=== PATIENT | male | born 1955 | race Caucasian/White ===

== ENCOUNTER 2022-10-18 21:14 | Emergency (ER) | payer MEDICARE ==
[~2022-10-18] VITALS: Ht 182.9 cm; Wt 90.7 kg
[2022-10-18] MEDS ORDERED: IV NORMAL SALINE 1000 ML BAG IV ONE (21:30)
[2022-10-18] MEDS ORDERED: KETAMINE HCL 500 MG/10 ML INJ IV ONE (21:45)
[2022-10-18] MEDS ORDERED: ONDANSETRON 4 MG/2 ML VIAL IV ONE (21:45)
[2022-10-18] MEDS ORDERED: ONDANSETRON 4 MG/2 ML VIAL ONE (22:08)
[2022-10-18] MEDS ORDERED: KETAMINE HCL 500 MG/10 ML INJ ONE (22:09)
[2022-10-18] MEDS ORDERED: IPRATROPIUM BROMIDE 0.5 MG/2.5 ML NEBU NEB ONE (22:45)
[2022-10-18] MEDS ORDERED: ALBUTEROL SULFATE 2.5 MG/3 ML NEBU NEB ONE (22:45)
[2022-10-18] MEDS ORDERED: methylPREDNISolone SOD SUCC 125 MG/2 ML VIAL IV ONE (22:45)
[2022-10-18 23:01] LABS: SITE, VBG RIGHT RADIAL; VENT MODE, VBG ROOM AIR
[2022-10-18] MEDS ORDERED: IPRATROPIUM BROMIDE 0.5 MG/2.5 ML NEBU ONE (23:06)
[2022-10-18] MEDS ORDERED: ALBUTEROL SULFATE 2.5 MG/3 ML NEBU ONE (23:06)
[2022-10-19 01:16] LABS: HEMATOCRIT 43.5 % (36.7-47.1); MEAN CORPUSCULAR VOLUME 105.9 fL (73.0-96.2); PLATELET COUNT (AUTO) 217 K/uL (152-348)
[2022-10-19 01:24] LABS: CARBON DIOXIDE 24 mmol/L (21-32); CHLORIDE 96 mmol/L (98-107); GLUCOSE 105 mg/dL (74-106); POTASSIUM 3.5 mmol/L (3.5-5.1); UREA NITROGEN, BLOOD 36 mg/dL (7-18)
[2022-10-19 01:33] LABS: ALANINE AMINOTRANSFERASE 50 U/L (16-63); ALKALINE PHOSPHATASE 197 U/L (50-136); ASPARTATE AMINOTRANSFERASE 99 U/L (15-37); BILIRUBIN,DIRECT 1.2 mg/dL (0.0-0.2); BILIRUBIN,TOTAL 1.6 mg/dL (0.2-1.0); CREATINE KINASE, TOTAL 663 U/L (39-308); TOTAL PROTEIN, SERUM 8.5 g/dL (6.4-8.2)
[2022-10-19 01:35] LABS: ACETAMINOPHEN < 10.0 ug/mL (10-30)
[2022-10-19 02:02] LABS: ETHANOL 318 MG/DL (0-0)
[2022-10-19] MEDS ORDERED: methylPREDNISolone SOD SUCC 125 MG/2 ML VIAL ONE ×2 (02:10→06:47)
[2022-10-19] MEDS ORDERED: IV NS 1000 ML 1,000 ML IV ONE ×3 (02:15→15:45)
[2022-10-19] MEDS ORDERED: KETAMINE HCL 500 MG/10 ML INJ IVP ONE (02:30)
[2022-10-19] MEDS ORDERED: KETAMINE HCL 500 MG/10 ML INJ ONE (02:33)
[2022-10-19 02:34] LABS: BAND % (MANUAL) 1 % (0-10); LYMPHOCYTES % (MANUAL) 13 % (20-40); MONOCYTES % (MANUAL) 10 % (2-10); NEUTROPHILS % (MANUAL) 76 % (42-75)
[2022-10-19] MEDS ORDERED: LORAZEPAM 2 MG/1 ML VIAL ONE (02:43)
[2022-10-19] MEDS ORDERED: LORAZEPAM 2 MG/1 ML VIAL IM ONE (02:45)
--- NOTE | 2022-10-19 02:45 | NUR ---
Removed Ketamine 500mg and wasted 465mg on Omnicell to administer 35mg per ERMD order but patient removed hep lock due to being agitated. Instead gave ativan 2mg IM per ERMD and d/c the 35mg ketamine. Wasted 35mg of Ketamine on Omnicell with another RN.
[2022-10-19] MEDS ORDERED: FOLIC ACID 5 MG/ML VIAL IV ONE ×2 (03:30→06:47)
[2022-10-19] MEDS ORDERED: THIAMINE HCL 200 MG/2 ML VIAL IV ONE (03:30)
[2022-10-19] MEDS ORDERED: MAGNESIUM SULFATE/D5W 100 ML IV SCH (03:30)
[2022-10-19] MEDS ORDERED: ACETAMINOPHEN 325 MG TABLET PO PRN (06:30)
[2022-10-19] MEDS ORDERED: IV NS 1000 ML 1,000 ML IV PRN ×2 (06:30→15:44)
[2022-10-19] MEDS ORDERED: HYDROCODONE/APAP 5-325MG TABLET PO PRN (06:30)
[2022-10-19] MEDS ORDERED: ONDANSETRON 4 MG/2 ML VIAL IV PRN (06:30)
[2022-10-19] MEDS ORDERED: REMEDY ESSENTIAL ZINC PASTE 113 GM TP PRN (06:30)
[2022-10-19] MEDS ORDERED: MORPHINE SULFATE 2 MG/1 ML DISP.SYRIN IV PRN (06:30)
[2022-10-19] MEDS ORDERED: MAGNESIUM HYDROXIDE 30 ML LIQUID UDC PO PRN (06:30)
[2022-10-19] MEDS ORDERED: LORAZEPAM 2 MG/1 ML VIAL IV PRN (06:30)
[2022-10-19] MEDS ORDERED: MAGNESIUM SULFATE/D5W 100 ML ONE (06:44)
[2022-10-19] MEDS ORDERED: THIAMINE HCL 200 MG/2 ML VIAL ONE (06:48)
[2022-10-19] MEDS ORDERED: PANTOPRAZOLE SODIUM 40 MG VIAL ONE (08:04)
[2022-10-19] MEDS ORDERED: PANTOPRAZOLE SODIUM 40 MG VIAL IV SCH (09:00)
[2022-10-19 12:00] LABS: *BILIRUBIN,URIN 1+ (NEGATIVE); *BLOOD, URINE 3+ (NEGATIVE); *CLARITY,URINE CLEAR (CLEAR); *COLOR,URINE DARK YELLOW (YELLOW); *KETONES,URINE NEGATIVE (NEGATIVE); LEUKOCYTE ESTERASE ,URINE NEGATIVE (NEGATIVE); NITRITE, URINE NEGATIVE (NEGATIVE); PH,URINE 5.5 (5.0-8.0); UGLUCOSE NEGATIVE (NEGATIVE)
[2022-10-19 12:22] LABS: *AMPHETAMINE, URINE NEGATIVE (NEGATIVE); *CANNABINOID, URINE NEGATIVE (NEGATIVE); *COCCAINE, URINE POSITIVE (NEGATIVE); *OPIATE, URINE NEGATIVE (NEGATIVE); *PHENCYCLIDINE SCREEN,URINE NEGATIVE (NEGATIVE)
[2022-10-19] MEDS ORDERED: ACETAMINOPHEN 325 MG TABLET ONE (14:02)
--- NOTE | 2022-10-19 15:59 | NUR ---
Removed IV intact, site okay, bandaged. Pt signed out AMA, acknowledges risks up to and including . Audrey Welch aware. Wheeled pt to front, pt's friend Bo came to pick him up.
[2022-10-19 20:02] LABS: BACTERIA,URINE FEW /HPF (NONE SEEN); SQUAMOUS EPITHELIAL CELL,UR FEW /HPF (NONE SEEN); WBC,URINE NONE SEEN /HPF (0-3)
[2022-10-20] MEDS ORDERED: THIAMINE HCL INJ 100 MG in IV DEXTROSE 5% 50 ML IV SCH (06:00)
[2022-10-20] MEDS ORDERED: FOLIC ACID 1 MG in IV DEXTROSE 5% 50 ML IV SCH (06:30)
== END 2022-10-19 16:05 | disposition left against medical advice (07) ==
LOC: ER 21:14
DX: S22.41XA Multiple fractures of ribs, right side, initial encounter for closed fracture (principal); W19.XXXA Unspecified fall, initial encounter; Y92.89 Other specified places as the place of occurrence of the external cause; G93.41 Metabolic encephalopathy; F10.129 Alcohol abuse with intoxication, unspecified; Y90.8 Blood alcohol level of 240 mg/100 ml or more; N17.9 Acute kidney failure, unspecified; E86.0 Dehydration; E87.20 Acidosis, unspecified; M62.82 Rhabdomyolysis; Z20.822 Contact with and (suspected) exposure to COVID-19; R74.01 Elevation of levels of liver transaminase levels; Z91.199 Patient's noncompliance with other medical treatment and regimen due to unspecified reason; Z53.29 Procedure and treatment not carried out because of patient's decision for other reasons; I10 Essential (primary) hypertension; E87.1 Hypo-osmolality and hyponatremia; R94.31 Abnormal electrocardiogram [ECG] [EKG]; R40.2361 Coma scale, best motor response, obeys commands, in the field [EMT or ambulance]; R40.2141 Coma scale, eyes open, spontaneous, in the field [EMT or ambulance]; R40.2241 Coma scale, best verbal response, confused conversation, in the field [EMT or ambulance]
CPT/HCPCS: 36415; 93005; 71045; 70450; 72125; 94640; 82803; 99285; 96361; 96374; 96375 ×3; 80307; 36600; 80076; 80048; 81001; 82140; 82550; 83690; 85007; 85025; 85730; 86850; 86900; 86901; 87426; 87040 ×2; 84484; 71250; 74176; 76770; 97161; 97162; 97530; 97116; 96372; 83605 ×3; 80299; 80320; J3490 ×2; J2405; J7040 ×3; J2060; J3475; J2930 ×2; C9113; J3411; 70030-TC; G0480; J3590